=== PATIENT | female | born 1950 | race American Indian/Alaskan Native ===

== ENCOUNTER 2017-01-25 16:41 | Emergency (ER) | payer MEDICARE ==
[2017-01-25 17:35] LABS: Bilirubin,Urine NEG (Negative); Blood,Urine SM (Negative); Ketones,Urine NEG (Negative); Leukocyte Esterase,Urine MOD (Negative); Mucus,Urine 1+ /HPF; Nitrite,Urine NEG (Negative); Protein,Urine <15 mg/dL mg/dL (Negative); Urobilinogen,Urine < 2.0 mg/dL (<2.0)
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
[2017-01-25] MEDS ORDERED: MORPHINE IV ONE (20:56)
[2017-01-25] MEDS ORDERED: NACL 0.9% 1000 ML 1,000 ML IV ONE (20:56)
[2017-01-25 21:26] LABS: Hematocrit 38.9 % (30.3-42.9); Hemoglobin 12.6 gm/dl (10.1-14.3); Mean Corpuscular HGB Conc 32 % (30-34); Mean Corpuscular Hemoglobin 29 pg (28-32); Mean Corpuscular Volume 89 fl (79-97); Platelet Count 158 K/mm3 (140-440); Red Blood Count 4.39 M/mm3 (3.65-5.03); Red Cell Distribution Width 13.5 % (13.2-15.2); White Blood Count 9.7 K/mm3 (4.5-11.0)
[2017-01-25] MEDS ORDERED: NACL ONE (21:28)
[2017-01-25 21:35] LABS: INR 0.96 (0.87-1.13)
[2017-01-25 21:36] LABS: Partial Thromboplastin Time 29.5 Sec. (24.2-36.6)
[2017-01-25 21:42] LABS: BUN/Creatinine Ratio 13.33; Calcium 9.5 mg/dL (8.4-10.2); Chloride 105.6 mmol/L (98-107); Potassium 4.5 mmol/L (3.6-5.0)
[2017-01-25 21:45] LABS: Alanine Aminotransferase 24 units/L (7-56); Albumin 3.9 g/dL (3.9-5); Albumin/Globulin Ratio 1.3 %; Alkaline Phosphatase 65 units/L (35-129)
[2017-01-25 22:14] LABS: Bilirubin,Direct < 0.2 mg/dL (0-0.2)
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
[2017-01-25 22:24] LABS: Basophils % (Manual) 0 % (0.0-1.8); Blastocytes % (Manual) 0 %
[2017-01-25 22:25] LABS: Anisocytosis 1+; Poikilocytosis Few
[2017-01-25 22:26] LABS: Diff Status Complete; Large Platelets Few
[2017-01-25 23:43] VITALS: BP 162/70
== END 2017-01-25 23:43 | disposition home or self-care (01) ==
LOC: ED 16:41
DX: M54.5 Low back pain (principal); I10 Essential (primary) hypertension; E11.9 Type 2 diabetes mellitus without complications; K21.9 Gastro-esophageal reflux disease without esophagitis; M19.90 Unspecified osteoarthritis, unspecified site; J45.909 Unspecified asthma, uncomplicated; Z88.0 Allergy status to penicillin; Z91.013 Allergy to seafood
CPT/HCPCS: 36415; 74177; 80048; 80074; 81001; 85007; 85025; 85610; 85730; 96361; 96374; 99284; J2270; J7030; Q9967

== ENCOUNTER 2017-04-05 16:54 | Emergency (ER) | payer MEDICARE ==
[2017-04-05 18:25] LABS: Basophils % (Auto) 0.5 % (0.0-1.8); Eosinophils % (Auto) 1.2 % (0.0-4.3); Hematocrit 40.9 % (30.3-42.9); Hemoglobin 13.1 gm/dl (10.1-14.3); Mean Corpuscular HGB Conc 32 % (30-34); Mean Corpuscular Hemoglobin 29 pg (28-32); Mean Corpuscular Volume 90 fl (79-97); Platelet Count 168 K/mm3 (140-440); Red Blood Count 4.56 M/mm3 (3.65-5.03); Red Cell Distribution Width 13.4 % (13.2-15.2); White Blood Count 7.2 K/mm3 (4.5-11.0)
[2017-04-05 18:35] LABS: INR 1.16 (0.87-1.13); Partial Thromboplastin Time 28.6 Sec. (24.2-36.6)
[2017-04-05 18:51] LABS: Anion Gap 20 mmol/L; BUN/Creatinine Ratio 8.33; Blood Urea Nitrogen 15 mg/dL (7-17); Calcium 9.3 mg/dL (8.4-10.2); Carbon Dioxide 24 mmol/L (22-30); Chloride 104.1 mmol/L (98-107); Glucose 143 mg/dL (65-100); Potassium 4.4 mmol/L (3.6-5.0); Sodium 144 mmol/L (137-145)
--- NOTE | 2017-04-05 18:52 | Cat Scan Report ---
FINAL REPORT PROCEDURE: CT HEAD/BRAIN WO CON TECHNIQUE: Computerized tomography of the head was performed without contrast material. HISTORY: neuro deficits \T\lt; 6hrs or sx present upon awakening COMPARISON: No prior studies are available for comparison. FINDINGS: Brain: There is no evidence of intracranial hemorrhage. No parenchymal hemorrhage is seen. No mass lesions or mass effect is identified. No abnormal extra-axial fluid collections or masses are seen. There is nonspecific mild mineralization of the basal ganglia bilaterally. There is some decreased density seen in the periventricular white matter without mass effect. This is fairly symmetric and does not exhibit any mass effect consistent with gliosis probably on the basis of microvascular disease or white matter changes of aging. Ventricles: The ventricles, sulcal pattern and fissures are prominent consistent with atrophy. Bones: No evidence of acute fracture. Paranasal sinuses: clear Mastoid air cells: clear IMPRESSION: There is evidence of mild atrophy and gliosis. No acute intracranial abnormalities are identified. If symptoms persist or worsen consider follow-up CT scan or MRI for further evaluation.
[2017-04-05] MEDS ORDERED: NACL 0.9% 1000 ML 1,000 ML IV ONE (20:46)
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
[2017-04-05 21:55] VITALS: BP 142/83
== END 2017-04-05 22:05 | disposition home or self-care (01) ==
LOC: ED 16:54
DX: R42 Dizziness and giddiness (principal); I10 Essential (primary) hypertension; E11.9 Type 2 diabetes mellitus without complications; K21.9 Gastro-esophageal reflux disease without esophagitis; M19.90 Unspecified osteoarthritis, unspecified site; J45.909 Unspecified asthma, uncomplicated; Z88.0 Allergy status to penicillin; Z91.013 Allergy to seafood
CPT/HCPCS: 36415; 70450; 80048; 82962; 84484; 85025; 85610; 85670; 85730; 93005; 93010; 96360; 99284; J7030

== ENCOUNTER 2018-01-20 12:36 | Emergency (ER) | payer MEDICARE ==
[2018-01-20 13:07] LABS: Basophils % (Auto) 0.6 % (0.0-1.8); Eosinophils # (Auto) 0.2 K/mm3 (0.0-0.4); Eosinophils % (Auto) 2.2 % (0.0-4.3); Hematocrit 40.7 % (30.3-42.9); Hemoglobin 13.2 gm/dl (10.1-14.3); Lymphocytes # (Auto) 3.3 K/mm3 (1.2-5.4); Lymphocytes % (Auto) 48.7 % (13.4-35.0); Mean Corpuscular HGB Conc 33 % (30-34); Mean Corpuscular Hemoglobin 29 pg (28-32); Mean Corpuscular Volume 89 fl (79-97); Monocytes # (Auto) 0.4 K/mm3 (0.0-0.8); Monocytes % (Auto) 5.5 % (0.0-7.3); Platelet Count 157 K/mm3 (140-440); Red Blood Count 4.57 M/mm3 (3.65-5.03); Red Cell Distribution Width 13.1 % (13.2-15.2)
[2018-01-20] MEDS ORDERED: DILAUDID IV ONE (13:11)
[2018-01-20] MEDS ORDERED: ZOFRAN IV ONE (13:11)
[2018-01-20 13:23] LABS: BUN/Creatinine Ratio 10; Blood Urea Nitrogen 12 mg/dL (7-17); Calcium 9.3 mg/dL (8.4-10.2); Hemolysis Index 13
--- NOTE | 2018-01-20 17:41 | Cat Scan Report ---
FINAL REPORT EXAM: CT ANGIO CHEST HISTORY: pleuri cp non-comp with blood thin TECHNIQUE: CT chest CT angiogram with reconstructions PRIORS: None. FINDINGS: There is no evidence of filling defect within the central pulmonary vasculature to suggest the presence of acute pulmonary embolus. No evidence of mediastinal pathologic lymph node enlargement Pulmonary trunk is enlarged measuring and 4.0 centimeters which could reflect underlying pulmonary hypertension. The aorta is normal in caliber. No focal pulmonary infiltrate identified. No pleural fluid collection seen. No acute pulmonary abnormality noted. Visualized portion of the upper abdomen demonstrates no acute change. IMPRESSION: Enlargement of the main pulmonary artery which may reflect underlying pulmonary hypertension. No CT evidence of acute pulmonary embolus
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
[2018-01-20 20:17] VITALS: BP 101/68
== END 2018-01-20 19:50 | disposition home or self-care (01) ==
LOC: ED 12:36
DX: R07.89 Other chest pain (principal); R06.02 Shortness of breath; I10 Essential (primary) hypertension; E11.9 Type 2 diabetes mellitus without complications; K21.9 Gastro-esophageal reflux disease without esophagitis; M19.90 Unspecified osteoarthritis, unspecified site; Z79.82 Long term (current) use of aspirin; Z88.4 Allergy status to anesthetic agent; Z91.040 Latex allergy status; Z88.0 Allergy status to penicillin; Z91.013 Allergy to seafood; Z91.048 Other nonmedicinal substance allergy status
CPT/HCPCS: 36415; 71275; 80048; 84484; 85025; 93005; 93010; 96374; 96375; 99284; J1170; J2405; Q9967

== ENCOUNTER 2018-01-27 21:17 | Observation (INO) | payer MEDICARE ==
[2018-01-27] MEDS ORDERED: ASPIRIN PO ONE (23:02)
[2018-01-27 23:33] LABS: Basophils % (Auto) 0.4 % (0.0-1.8); Eosinophils # (Auto) 0.2 K/mm3 (0.0-0.4); Hematocrit 39.4 % (30.3-42.9); Hemoglobin 12.7 gm/dl (10.1-14.3); Lymphocytes # (Auto) 4.5 K/mm3 (1.2-5.4); Lymphocytes % (Auto) 47.3 % (13.4-35.0); Mean Corpuscular HGB Conc 32 % (30-34); Mean Corpuscular Hemoglobin 29 pg (28-32); Mean Corpuscular Volume 90 fl (79-97); Monocytes # (Auto) 0.4 K/mm3 (0.0-0.8); Monocytes % (Auto) 4.7 % (0.0-7.3); Platelet Count 157 K/mm3 (140-440); Red Blood Count 4.39 M/mm3 (3.65-5.03); Red Cell Distribution Width 13.4 % (13.2-15.2)
[2018-01-27 23:51] LABS: BUN/Creatinine Ratio 15; Blood Urea Nitrogen 22 mg/dL (7-17); Hemolysis Index 5
--- NOTE | 2018-01-28 01:46 | Emergency Department Report ---
ED Chest Pain HPI - General Chief Complaint: Chest Pain Stated Complaint: CP Time Seen by Provider: 01/28/18 01:38 Source: patient Mode of arrival: Ambulatory Limitations: No Limitations - History of Present Illness Initial Comments: Patient is 67 years old female with history of coronary artery disease status post stents at [facility] last year, diabetes and hypertension. Patient presented with chest pain, substernal, pressure with no radiation. Patient denied any shortness of breath. No cough or fever. MD Complaint: chest pain Onset: during rest Pain Location: left chest Quality: pressure - Related Data Home Medications Medication Instructions Recorded Confirmed Last Taken Albuterol Sulfate [Ventolin HFA] 1 puff IH BID 07/17/17 01/20/18 07/16/17 Apixaban [Eliquis] 5 mg PO BID 07/17/17 01/20/18 07/17/17 Aspirin [Adult Low Dose Aspirin EC] 81 mg PO DAILY 07/17/17 01/20/18 07/17/17 Bimatoprost [Lumigan 0.01%] 1 drop OP HS 07/17/17 01/20/18 07/15/17 Fluticasone Propionate [Flovent 1 puff IH DAILY 07/17/17 01/20/18 07/16/17 110 MCG/PUFF HFA] Fluticasone [Flonase] 2 spray NS BID 07/17/17 01/20/18 07/17/17 Furosemide [Lasix] 20 mg PO PRN 07/17/17 01/20/18 Unknown Omeprazole 40 mg PO QAM 07/17/17 01/20/18 07/17/17 Rosuvastatin Calcium [Crestor] 10 mg PO HS 07/17/17 01/20/18 07/15/17 Solifenacin Succinate [Vesicare] 10 mg PO DAILY 07/17/17 01/20/18 07/17/17 Trazodone HCl 150 mg PO DAILY 07/17/17 01/20/18 07/15/17 Venlafaxine HCl [Effexor Xr] 150 mg PO DAILY 07/17/17 01/20/18 07/17/17 risperiDONE [RisperDAL] 3 mg PO QPM 07/17/17 01/20/18 07/15/17 Previous Rx's Medication Instructions Recorded Last Taken Type HYDROcodone/APAP 5-325 [[place] 1 each PO Q4HR PRN #12 tablet 01/20/18 Unknown Rx 5/325] Allergies Allergy/AdvReac Type Severity Reaction Status Date / Time Latex, Natural Rubber Allergy Rash Verified 08/04/17 13:33 lidocaine [From Xylocaine] Allergy Swelling Verified 08/04/17 13:33 Penicillins Allergy Swelling Verified 08/04/17 13:33 SEAFOOD Allergy Intermediate Rash Uncoded 07/17/17 11:27 Heart Score - HEART Score History: Moderately suspicious EKG: Non-specific Age: > 65 Risk factors: > 3 risk factors or hx of atherosclerotic disease Troponin: < normal limit HEART Score: 6 - Critical Actions Critical Actions: 4-6 pts:12-16.6% risk of adverse cardiac event. Should be admitted ED Review of Systems ROS: Stated complaint: CP Other details as noted in HPI Comment: All other systems reviewed and negative Respiratory: denies: cough, shortness of breath Cardiovascular: chest pain. denies: palpitations Gastrointestinal: denies: abdominal pain, nausea Musculoskeletal: denies: back pain Neurological: denies: headache, weakness ED Past Medical Hx - Past Medical History Hx Hypertension: Yes Hx Congestive Heart Failure: No Hx Diabetes: Yes Hx GERD: Yes Hx Arthritis: Yes Hx Seizures: Yes Hx Asthma: Yes Hx COPD: No Additional medical history: Pulmonary Embolism May 2017. HYPOTENSION. RUPTURED DISC IN BACK. OVERACTIVE BLADDER - Surgical History Hx Coronary Stent: Yes (2015) Additional Surgical History: BONE SPURS BOTH FEET. "INTERNAL MONITOR" - Social History Smoking Status: Former Smoker Substance Use Type: None - Medications Home Medications: Home Medications Medication Instructions Recorded Confirmed Last Taken Type Albuterol Sulfate [Ventolin HFA] 1 puff IH BID 07/17/17 01/20/18 07/16/17 History Apixaban [Eliquis] 5 mg PO BID 07/17/17 01/20/18 07/17/17 History Aspirin [Adult Low Dose Aspirin EC] 81 mg PO DAILY 07/17/17 01/20/18 07/17/17 History Bimatoprost [Lumigan 0.01%] 1 drop OP HS 07/17/17 01/20/18 07/15/17 History Fluticasone Propionate [Flovent 1 puff IH DAILY 07/17/17 01/20/18 07/16/17 History 110 MCG/PUFF HFA] Fluticasone [Flonase] 2 spray NS BID 07/17/17 01/20/18 07/17/17 History Furosemide [Lasix] 20 mg PO PRN 07/17/17 01/20/18 Unknown History Omeprazole 40 mg PO QAM 07/17/17 01/20/18 07/17/17 History Rosuvastatin Calcium [Crestor] 10 mg PO HS 07/17/17 01/20/18 07/15/17 History Solifenacin Succinate [Vesicare] 10 mg PO DAILY 07/17/17 01/20/18 07/17/17 History Trazodone HCl 150 mg PO DAILY 07/17/17 01/20/18 07/15/17 History Venlafaxine HCl [Effexor Xr] 150 mg PO DAILY 07/17/17 01/20/18 07/17/17 History risperiDONE [RisperDAL] 3 mg PO QPM 07/17/17 01/20/18 07/15/17 History HYDROcodone/APAP 5-325 [[place] 1 each PO Q4HR PRN #12 tablet 01/20/18 Unknown Rx 5/325] ED Physical Exam - General Limitations: No Limitations General appearance: alert, in no apparent distress - Head Head exam: Present: atraumatic, normocephalic, normal inspection - Eye Eye exam: Present: normal appearance, PERRL - ENT ENT exam: Present: normal exam, normal orophraynx, mucous membranes moist - Neck Neck exam: Present: normal inspection, full ROM. Absent: tenderness, meningismus, lymphadenopathy, thyromegaly - Respiratory Respiratory exam: Present: normal lung sounds bilaterally. Absent: respiratory distress, wheezes, rales, rhonchi, stridor, chest wall tenderness, accessory muscle use, decreased breath sounds, prolonged expiratory - Cardiovascular Cardiovascular Exam: Present: regular rate, normal rhythm, normal heart sounds - GI/Abdominal GI/Abdominal exam: Present: soft, normal bowel sounds. Absent: distended, tenderness, guarding, rebound, rigid, organomegaly, mass, bruit, pulsatile mass - Extremities Exam Extremities exam: Present: normal inspection, full ROM, normal capillary refill - Back Exam Back exam: Present: normal inspection, full ROM. Absent: tenderness, CVA tenderness (R), CVA tenderness (L) - Neurological Exam Neurological exam: Present: alert, oriented X3, CN II-XII intact, normal gait - Skin Skin exam: Present: warm, intact, normal color ED Course Vital Signs 01/27/18 01/28/18 01/28/18 22:56 01:22 01:32 Temperature 98.7 F 97.6 F Pulse Rate 85 73 Respiratory 18 23 Rate Blood Pressure 105/57 O2 Sat by Pulse 96 Oximetry JESSICA score - Jessica Score Age > 65: (1) Yes Aspirin use within the Past 7 Days: (1) Yes 3 or more CAD Risk Factors: (0) No 2 or more Angina events in past 24 hrs: (0) No Known CAD with more than 50% Stenosis: (0) No Elevated Cardiac Markers: (0) No ST Deviation Greater than 0.5mm: (0) No JESSICA Score: 2 ED Medical Decision Making - Lab Data Result diagrams: 01/27/18 23:14 01/27/18 23:14 - EKG Data -: EKG Interpreted by Me EKG shows normal: sinus rhythm Rate: normal - EKG Data Interpretation: no acute changes - Radiology Data Radiology results: report reviewed Chest x-ray unremarkable. - Medical Decision Making I discussed the patient is Dr. Ponce, he agreed to admit the patient to his service. Critical care attestation.: If time is entered above; I have spent that time in minutes in the direct care of this critically ill patient, excluding procedure time. ED Disposition Clinical Impression: Chest pain Disposition: OP ADMIT IP TO THIS HOSP Is pt being admited?: Yes Condition: Stable Instructions: Chest Pain (ED) Referrals: PRIMARY CARE, [Primary Care Provider] - 3-5 Days
--- NOTE | 2018-01-28 02:13 | XRay Report ---
FINAL REPORT EXAM: XR CHEST 1V AP HISTORY: chest pain TECHNIQUE: A portable upright view the chest was obtained. FINDINGS: The heart is mildly enlarged. The lungs are not congested. There are no localized infiltrates or effusions. There EKG leads overlying the chest wall. The skeletal structures otherwise appear well maintained. IMPRESSION: Cardiomegaly. No acute process in the chest.
[2018-01-28] MEDS ORDERED: HEPARIN SUB-Q SCH (04:00)
[2018-01-28] MEDS ORDERED: MORPHINE IV PRN (04:04)
[2018-01-28] MEDS ORDERED: ZOFRAN IV PRN (04:04)
[2018-01-28] MEDS ORDERED: NITROSTAT SL PRN (04:06)
[2018-01-28] MEDS ORDERED: NORCO 5/325 PO PRN (04:20)
[2018-01-28] MEDS ORDERED: BABY ASPIRIN PO ONE (04:23)
[2018-01-28] MEDS ORDERED: NACL 0.9% 1000 ML 1,000 ML IV SCH (05:00)
[2018-01-28] MEDS: NITRO-BID 2% TP SCH ×4 (06:02→19:42)
[2018-01-28] MEDS ORDERED: HEPARIN ONE (06:04)
[2018-01-28] MEDS ORDERED: NITRO-BID 2% TP ONE (06:05)
[2018-01-28] MEDS ORDERED: BABY ASPIRIN ONE (06:05)
--- NOTE | 2018-01-28 07:48 | History and Physical Report ---
CHIEF COMPLAINT: Chest pain. HISTORY OF PRESENT ILLNESS: The patient is a 67-year-old female. She has been having pressure-like chest pain going on all the last week on and off. Pain does not radiate and the pain was associated with shortness of breath and nausea, but no vomiting, and also there is history of diaphoresis. The patient states she was in [facility] on Thursday where they checked her for blood clot and did not find any blood clot and send her home. The patient presented to this Emergency Room with chest pain. There is no history of fever or chills. No history of cough. PAST MEDICAL HISTORY: Pertinent for coronary artery disease, status post stent placement at [facility] last year, also the patient has past medical history of hypertension, diabetes mellitus, gastroesophageal reflux disease, arthritis, seizure disorder, asthma, and pulmonary embolism. Also, the patient has past medical history of ruptured disc in the back, overactive bladder, and hypotension. PAST SURGICAL HISTORY: Pertinent for coronary artery stent placement in 2016, and 2017, also the patient has past surgical history of small surgery in both feet. FAMILY HISTORY: Noncontributory. SOCIAL HISTORY: The patient is a former cigarette smoker, does not smoke anymore, and does not drink alcohol or use illicit drugs. MEDICATIONS: The patient is on Ventolin inhaler one puff twice daily, Eliquis (apixaban) 5 mg by mouth twice daily, aspirin 81 mg by mouth daily, Lumigan eye drops 0.01% one drop to the affected eye every night. The patient is also on Flovent inhaler one puff daily and on fluticasone or Flonase spray, two sprays to the nose twice daily. The patient is also on Lasix 20 mg by mouth daily as needed for swelling. The patient is on omeprazole 40 mg by mouth daily, Crestor 10 mg by mouth at bedtime, solifenacin succinate 10 mg by mouth daily. The patient is on trazodone 150 mg by mouth daily, venlafaxine 150 mg by mouth daily, risperidone 3 mg by mouth every night, and Elton 5/325 one by mouth every 4 hours as needed for pain. ALLERGIES: The patient is allergic to LATEX, NATURAL RUBBER, LIDOCAINE, PENICILLIN, and SEAFOOD. REVIEW OF SYSTEMS: CONSTITUTIONAL: There is no fever, no chills. Diaphoresis is present. HEENT: There is no headache or sore throat. CARDIOVASCULAR SYSTEM: Chest pain is present. No orthopnea. RESPIRATORY SYSTEM: There is shortness of breath, no cough. GASTROINTESTINAL SYSTEM: There is nausea with no vomiting, no abdominal pain, diarrhea or constipation. NEUROLOGICAL SYSTEM: There is no numbness, no dizziness, no altered mental status. MUSCULOSKELETAL SYSTEM: There is no joint pain or swelling. DERMATOLOGICAL SYSTEM: There is no skin rash. GENITOURINARY SYSTEM: There is no dysuria, hematuria, or flank pain. Rest of system review is normal. PHYSICAL EXAMINATION: GENERAL: At the time of exam, the patient was found to be alert, oriented x 3, not in acute distress. VITAL SIGNS: Shows temperature of 97.8 degrees Fahrenheit, pulse of 85, respirations 18, blood pressure 105/57, and O2 sat of 96% on room air. HEENT: Pupils to be equal, round, and reactive to light and accommodation. Extraocular muscles are intact. NECK: Supple with no JVD or carotid bruits. CARDIOVASCULAR SYSTEM: Showed normal first and second heart sounds, with no gallops or murmurs. RESPIRATORY SYSTEM: Show good air entry on both sides of the lung with no abnormal breath sounds. GASTROINTESTINAL SYSTEM: Show abdomen to be full, soft, and nontender with no organomegaly or rigidity. NEUROLOGICAL: Exam shows no focal deficit. MUSCULOSKELETAL SYSTEM: Show no joint swelling or tenderness. DERMATOLOGIC SYSTEM: Show no skin rash. GENITOURINARY SYSTEM: Showing no costovertebral angle tenderness. PERTINENT LABORATORY: The patient has CBC done with normal white count, normal hemoglobin, and normal hematocrit. CBC differential showing elevated lymphocyte count of 47.3% and normal segmented neutrophils. The patient's chemistry shows normal electrolytes, with elevated BUN of 22, and elevated creatinine of 1.5. Rest of the patient's chemistry was unremarkable. Cardiac enzymes show normal value. IMAGING STUDIES: The patient had chest x-ray done that came back no active cardiopulmonary lesions. DIAGNOSES: 1. Chest pain. 2. Acute kidney injury. PLAN: The patient will be admitted to medical floor on telemetry. We will have cardiac enzyme involving troponin, total CK, and CK-MB checked every six hours x 2 more levels. The patient will be nothing by mouth for Lexiscan stress test in the morning. The patient will be on intravenous normal saline at 100 mL an hour. The patient will have basic metabolic panel checked in the morning to reevaluate the acute renal failure after rehydration and the patient will be on aspirin 325 mg by mouth daily and will be on nitro paste half inch to anterior chest wall every 6 hours. The patient will also be on sublingual nitroglycerin 0.4 mg every 5 minutes as needed for breakthrough chest pain. The patient will be on intravenous morphine 2 mg every 3 hours as needed for pain and intravenous Zofran 4 mg every 6 hours for nausea and vomiting. The patient will be on Tylenol 650 mg every 4 hours for fever and headache, and further management of the patient's condition will be dependent on the result of the stress test in the morning. The patient's home medications will be reconciled and started accordingly. JOB# [id number] OCN/JASPAL
[2018-01-28 08:33] LABS: BUN/Creatinine Ratio 19; Blood Urea Nitrogen 19 mg/dL (7-17); Calcium 8.7 mg/dL (8.4-10.2); Hemolysis Index 9
[2018-01-28 08:34] LABS: Creatine Kinase MB 2.1 ng/mL (0.0-4.0)
[2018-01-28] MEDS: PULMICORT IH SCH ×2 (08:45→21:35)
[2018-01-28] MEDS: PROVENTIL IH SCH ×2 (08:46→21:35)
[2018-01-28] MEDS ORDERED: LEXISCAN IV ONE ×2 (09:52→10:01)
[2018-01-28] MEDS ORDERED: FLUTICASONE PROPIONATE IH SCH (10:00)
[2018-01-28] MEDS ORDERED: PROAIR IH SCH (10:00)
[2018-01-28] MEDS ORDERED: ASPIRIN PO SCH (10:00)
[2018-01-28] MEDS: ELIQUIS PO SCH ×2 (12:50→21:50)
[2018-01-28] MEDS: HALFPRIN EC PO SCH (12:50)
[2018-01-28] MEDS: FLONASE NS SCH ×2 (13:35→21:49)
[2018-01-28 14:09] LABS: Creatine Kinase MB 2.1 ng/mL (0.0-4.0)
--- NOTE | 2018-01-28 15:39 | Consultation ---
History of Present Illness Consult date: 01/28/18 Requesting physician: WILL FISHER Consult reason: chest pain, other (cad) History of present illness: The pt is a 67 YO female with a past medical history significant for CAD s/p PCI in 05/2017 at [place], PE diagnosed 6 months ago at [place], anticoagulated with Eliquis, HTN, DM, severe pulmonary HTN, mod to severe TR. She is previously unknown to our practice. She reports she is regularly followed by [place] cardiology. She presented with complaints of chest pain for 2 weeks prior to arrival. She describes her chest pain as a right-sided, intermittent, nonexertional, nonradiating pain which sometimes radiates down her right arm. She denies any SOB, palpitations, n/v, diaphoresis, dizziness or syncope. She underwent lexiscan MPI stress testing this AM which was negative for significant ischemia. Of note, she reports that she underwent cardiac catheterization this past 01/25/2018, via right radial approach. She believes the result of this test was normal. Echo done 07/2017 showed EF 60-65%, impaired relaxation, RV wall thickness mod increased, RV mod dilated, RV systolic function mildly reduced, RA mildly dilated, mod to severe TR, severe pulm HTN with RVSP 107mmHg. Lexiscan MPI stress test done 07/2017 was negative for ischemia, suggestive of RV pressure overload. Past History Past Medical History: CAD, hypertension, pulmonary embolism, other (severe pulm HTN) Social history: denies: smoking, alcohol abuse, prescription drug abuse Medications and Allergies Allergies Allergy/AdvReac Type Severity Reaction Status Date / Time Latex, Natural Rubber Allergy Rash Verified 08/04/17 13:33 lidocaine [From Xylocaine] Allergy Swelling Verified 08/04/17 13:33 Penicillins Allergy Swelling Verified 08/04/17 13:33 SEAFOOD Allergy Intermediate Rash Uncoded 07/17/17 11:27 Home Medications Medication Instructions Recorded Confirmed Last Taken Type Albuterol Sulfate [Ventolin HFA] 1 puff IH BID 07/17/17 01/28/18 2 Days Ago History ~01/26/18 Apixaban [Eliquis] 5 mg PO BID 07/17/17 01/28/18 2 Days Ago History ~01/26/18 Aspirin [Adult Low Dose Aspirin EC] 81 mg PO DAILY 07/17/17 01/28/18 2 Days Ago History ~01/26/18 Bimatoprost [Lumigan 0.01%] 1 drop OP HS 07/17/17 01/28/18 2 Days Ago History ~01/26/18 Fluticasone Propionate [Flovent 1 puff IH DAILY 07/17/17 01/28/18 2 Days Ago History 110 MCG/PUFF HFA] ~01/26/18 Fluticasone [Flonase] 2 spray NS BID 07/17/17 01/28/18 2 Days Ago History ~01/26/18 Furosemide [Lasix] 20 mg PO PRN 07/17/17 01/28/18 2 Days Ago History ~01/26/18 Omeprazole 40 mg PO QAM 07/17/17 01/28/18 2 Days Ago History ~01/26/18 Rosuvastatin Calcium [Crestor] 10 mg PO HS 07/17/17 01/28/18 2 Days Ago History ~01/26/18 Solifenacin Succinate [Vesicare] 10 mg PO DAILY 07/17/17 01/28/18 2 Days Ago History ~01/26/18 Trazodone HCl 150 mg PO DAILY 07/17/17 01/28/18 2 Days Ago History ~01/26/18 Venlafaxine HCl [Effexor Xr] 150 mg PO DAILY 07/17/17 01/28/18 2 Days Ago History ~01/26/18 risperiDONE [RisperDAL] 3 mg PO QPM 07/17/17 01/28/18 2 Days Ago History ~01/26/18 Docusate Sodium 100 mg PO BID MDD stool softener 01/28/18 01/28/18 Unknown History Active Meds: Active Medications Acetaminophen (Tylenol) 650 mg PO Q4H PRN PRN Reason: For Pain/Fever/Headache Acetaminophen/Hydrocodone Bitart ([place] 5/325) 1 each PO Q4H PRN PRN Reason: Pain, Moderate (4-6) Last Admin: 01/28/18 12:50 Dose: 1 each Albuterol (Proventil) 2.5 mg IH BIDRT [facility] Last Admin: 01/28/18 08:46 Dose: 2.5 mg Apixaban (Eliquis) 5 mg PO BID [facility]; Protocol Last Admin: 01/28/18 12:50 Dose: 5 mg Aspirin (Halfprin Ec) 81 mg PO DAILY [facility] Last Admin: 01/28/18 12:50 Dose: 81 mg Budesonide (Pulmicort) 0.5 mg IH Q12HRT [facility] Last Admin: 01/28/18 08:45 Dose: 0.5 mg Fluticasone Propionate (Flonase) 100 mcg NS BID [facility] Last Admin: 01/28/18 13:35 Dose: 100 mcg Sodium Chloride (Nacl 0.9% 1000 Ml) 1,000 mls @ 100 mls/hr IV DIRECT [facility] Latanoprost (Latanoprost 0.005%) 1 drops OU HS [facility] Morphine Sulfate (Morphine) 2 mg IV Q3H PRN PRN Reason: Pain, Moderate (4-6) Nitroglycerin (Nitrostat) 0.4 mg SL .Q5MIN PRN PRN Reason: Chest Pain Nitroglycerin (Nitro-Bid 2%) 0.5 inch TP QIDNTG [facility]; Protocol Last Admin: 01/28/18 12:51 Dose: 0.5 inch Ondansetron HCl (Zofran) 4 mg IV Q8H PRN PRN Reason: Nausea And Vomiting Review of Systems All systems: negative Cardiovascular: chest pain, high blood pressure, no orthopnea, no palpitations, no rapid/irregular heart beat, no edema, no syncope, no lightheadedness, no shortness of breath, no dyspnea on exertion, no leg edema, no decreased exercise tolerance Respiratory: no cough, no shortness of breath, no dyspnea on exertion, no congestion, no wheezing, no pain on inspiration Physical Examination Vital Signs Temp Pulse Resp BP Pulse Ox 98.7 F 85 18 105/57 96 01/27/18 22:56 01/27/18 22:56 01/27/18 22:56 01/27/18 22:56 01/27/18 22:56 General appearance: no acute distress HEENT: Positive: PERRL, Normocephaly, Mucus Membranes Moist Neck: Positive: neck supple, trachea midline Cardiac: Positive: Reg Rate and Rhythm, S1/S2, Systolic Murmur Lungs: Positive: clear to auscultation Neuro: Positive: Grossly Intact, Cranial Nerve 2-12 Intact Abdomen: Positive: Soft. Negative: Tender Skin: Positive: Clear. Negative: Rash, Wound Musculoskeletal: No Fluid Collection, No Pain, Normal Range of Motion Extremities: Absent: edema Results 01/27/18 23:14 01/28/18 07:56 Cardiac Enzymes 01/28/18 01/28/18 Range/Units 07:56 13:24 CK-MB (CK-2) 2.1 2.1 (0.0-4.0) ng/mL CBC 01/27/18 Range/Units 23:14 WBC 9.4 (4.5-11.0) K/mm3 RBC 4.39 (3.65-5.03) M/mm3 Hgb 12.7 (10.1-14.3) gm/dl Hct 39.4 (30.3-42.9) % Plt Count 157 (140-440) K/mm3 Lymph # 4.5 (1.2-5.4) K/mm3 Dickens # 0.4 (0.0-0.8) K/mm3 Eos # 0.2 (0.0-0.4) K/mm3 Baso # 0.0 (0.0-0.1) K/mm3 Comprehensive Metabolic Panel 01/27/18 01/28/18 Range/Units 23:14 07:56 Sodium 141 145 (137-145) mmol/L Potassium 3.9 3.6 (3.6-5.0) mmol/L Chloride 102.4 106.3 (98-107) mmol/L Carbon Dioxide 28 26 (22-30) mmol/L BUN 22 H 19 H (7-17) mg/dL Creatinine 1.5 H 1.0 (0.7-1.2) mg/dL Glucose 103 H 80 (65-100) mg/dL Calcium 9.0 8.7 (8.4-10.2) mg/dL - Imaging and Cardiology Echo: pending, report reviewed (07/2017 showed EF 60-65%, impaired relaxation, RV wall thickness mod increased, RV mod dilated, RV systolic function mildly reduced, RA mildly dilated, mod to severe TR, severe pulm HTN with RVSP 107mmHg. ) EKG: report reviewed, image reviewed EKG interpretations - Telemetry EKG Rhythm: Sinus Rhythm - EKG Sinus rhythms and dysrhythmias: sinus rhythm Repolarization changes or abnormalities: ST or T wave suggestive of ischemia Assessment and Plan Assessment: Chest pain, atypical Abnormal ECG - Jose R negative for AMI CAD s/p PCI in 05/2017 at [place] H/o PE diagnosed 6 months ago at [place], anticoagulated with Eliquis HTN DM Severe pulmonary HTN Mod to severe TR Plan: S/p lexiscan MPI this AM which was negative for ischemia. Request medical records from [facility] - pt reports she underwent LHC on Thursday which was normal to her knowledge. The patient has been seen in conjunction with Dr. Silverman who agrees with the assessment and plan of care.
--- NOTE | 2018-01-28 16:06 | Progress Note ---
Hospitalist Physical - Constitutional Vitals: Temp Pulse Resp BP Pulse Ox 97.6 F 76 18 130/55 99 01/28/18 01:32 01/28/18 12:51 01/28/18 08:55 01/28/18 10:21 01/28/18 06:55 General appearance: Present: no acute distress Results - Labs CBC & Chem 7: 01/27/18 23:14 01/28/18 07:56 Labs: Laboratory Last Values WBC 9.4 K/mm3 (4.5-11.0) 01/27/18 23:14 RBC 4.39 M/mm3 (3.65-5.03) 01/27/18 23:14 Hgb 12.7 gm/dl (10.1-14.3) 01/27/18 23:14 Hct 39.4 % (30.3-42.9) 01/27/18 23:14 MCV 90 fl (79-97) 01/27/18 23:14 MCH 29 pg (28-32) 01/27/18 23:14 MCHC 32 % (30-34) 01/27/18 23:14 RDW 13.4 % (13.2-15.2) 01/27/18 23:14 Plt Count 157 K/mm3 (140-440) 01/27/18 23:14 Lymph % (Auto) 47.3 % (13.4-35.0) H 01/27/18 23:14 Taney % (Auto) 4.7 % (0.0-7.3) 01/27/18 23:14 Eos % (Auto) 2.0 % (0.0-4.3) 01/27/18 23:14 Baso % (Auto) 0.4 % (0.0-1.8) 01/27/18 23:14 Lymph # 4.5 K/mm3 (1.2-5.4) 01/27/18 23:14 Taney # 0.4 K/mm3 (0.0-0.8) 01/27/18 23:14 Eos # 0.2 K/mm3 (0.0-0.4) 01/27/18 23:14 Baso # 0.0 K/mm3 (0.0-0.1) 01/27/18 23:14 Seg Neutrophils % 45.6 % (40.0-70.0) 01/27/18 23:14 Seg Neutrophils # 4.3 K/mm3 (1.8-7.7) 01/27/18 23:14 Sodium 145 mmol/L (137-145) 01/28/18 07:56 Potassium 3.6 mmol/L (3.6-5.0) 01/28/18 07:56 Chloride 106.3 mmol/L (98-107) 01/28/18 07:56 Carbon Dioxide 26 mmol/L (22-30) 01/28/18 07:56 Anion Gap 16 mmol/L 01/28/18 07:56 BUN 19 mg/dL (7-17) H 01/28/18 07:56 Creatinine 1.0 mg/dL (0.7-1.2) 01/28/18 07:56 Estimated GFR > 60 ml/min 01/28/18 07:56 BUN/Creatinine Ratio 19 % 01/28/18 07:56 Glucose 80 mg/dL (65-100) 01/28/18 07:56 Calcium 8.7 mg/dL (8.4-10.2) 01/28/18 07:56 Total Creatine Kinase 82 units/L (30-135) 01/28/18 13:24 CK-MB (CK-2) 2.1 ng/mL (0.0-4.0) 01/28/18 13:24 CK-MB (CK-2) Rel Index 2.5 (0-4) 01/28/18 13:24 Troponin T < 0.010 ng/mL (0.00-0.029) 01/28/18 13:24
--- NOTE | 2018-01-28 16:06 | Event Note ---
Date: 01/28/18 Patient is 67 yo with history of CAD, presents with chest pain. I have seen and examined her. Patient states had cardiac cath at [facility] 3 days ago. Will request records. Cardiology following.
[2018-01-28] MEDS: TYLENOL PO PRN (21:50)
[2018-01-28] MEDS ORDERED: LATANOPROST 0.005% OU SCH (22:00)
--- NOTE | 2018-01-28 23:01 | Treadmill Report ---
NUCLEAR CARDIAC IMAGING INDICATION FOR PROCEDURE: Chest pain. Informed consent was obtained. Vasodilator stress was achieved with 0.4 mg of intravenous Lexiscan per protocol. Rest and stress nuclear cardiac imaging were performed following the intravenous administration of 10 mCi and 28 mCi of technetium-99m Myoview per protocol. Images were acquired in a 180-degree arc from 45 degrees BUENROSTRO to 45 degrees LPO. After data acquisition and reconstruction, the images were processed and reoriented into the vertical long, horizontal long, and horizontal short axis slices. A polar color map of the horizontal short axis slices was generated and reviewed. The rotating planar images reviewed in cinematic format on the computer console. Gated SPECT imaging demonstrates a post-stress left ventricular ejection fraction of 66% with normal wall motion. Myocardial perfusion imaging demonstrates no significant cavity change between stress and rest. No significant stress induced perfusion defects are seen. Nuclear cardiac imaging demonstrates grossly normal post-stress left ventricular systolic function with no significant evidence for myocardial ischemia or necrosis. JOB# [id number] KARLA/JASPAL
[2018-01-29] MEDS: TYLENOL PO PRN ×2 (06:25→14:42)
[2018-01-29] MEDS: NITRO-BID 2% TP SCH ×5 (06:26→17:23)
[2018-01-29] MEDS: PROVENTIL IH SCH (08:10)
[2018-01-29] MEDS: PULMICORT IH SCH (08:10)
[2018-01-29] MEDS: HALFPRIN EC PO SCH (10:24)
[2018-01-29] MEDS: ELIQUIS PO SCH (10:24)
[2018-01-29] MEDS: FLONASE NS SCH (10:25)
--- NOTE | 2018-01-29 11:38 | Progress Note ---
Assessment and Plan Assessment: Chest pain, atypical Abnormal ECG - Jose R negative for AMI CAD s/p PCI in 05/2017 at [facility] H/o PE diagnosed 6 months ago at [facility], anticoagulated with Eliquis HTN DM Severe pulmonary HTN Mod to severe TR Plan: S/p lexiscan MPI yesterday which was negative for ischemia. Await medical records from [facility] - pt reports she underwent LHC on Thursday which was normal to her knowledge. The patient has been seen in conjunction with Dr. Akins who agrees with the assessment and plan of care. Subjective Date of service: 01/29/18 Principal diagnosis: chest pain Interval history: pt resting in bed, still c/o intermittent right-sided chest pain. Objective Last Vital Signs Temp 97.4 F L 01/29/18 07:09 Pulse 69 01/29/18 10:26 Resp 16 01/29/18 10:00 BP 148/78 01/29/18 10:26 Pulse Ox 97 01/29/18 10:00 - Physical Examination HEENT: Positive: PERRL, Normocephaly, Mucus Membranes Moist Neck: Positive: neck supple, trachea midline Cardiac: Positive: Reg Rate and Rhythm, S1/S2 Lungs: Positive: clear to auscultation Neuro: Positive: Grossly Intact, Cranial Nerve 2-12 Intact Abdomen: Positive: Soft. Negative: Tender Skin: Positive: Clear. Negative: Rash, Wound Musculoskeletal: No Fluid Collection, No Pain, Normal Range of Motion Extremities: Absent: edema - Labs and Meds Cardiac Enzymes 01/28/18 Range/Units 13:24 CK-MB (CK-2) 2.1 (0.0-4.0) ng/mL - Imaging and Cardiology EKG: report reviewed, image reviewed Echo: pending, report reviewed (07/2017 showed EF 60-65%, impaired relaxation, RV wall thickness mod increased, RV mod dilated, RV systolic function mildly reduced, RA mildly dilated, mod to severe TR, severe pulm HTN with RVSP 107mmHg. ) - EKG Sinus rhythms and dysrhythmias: sinus rhythm Repolarization changes or abnormalities: ST or T wave suggestive of ischemia
--- NOTE | 2018-01-29 11:57 | Discharge Summary ---
Providers - Providers Date of Admission: 01/28/18 03:57 Attending physician: WILL FISHER 01/28/18 09:41 Consult to Physician [CONS] Routine Comment: Consulting Provider: CANDIS WALDEN Physician Instructions: Reason For Exam: Chest pain, coronary artery disease Primary care physician: DAYNA FLOR MD Hospitalization Condition: Fair Disposition: DC-01 TO HOME OR SELFCARE Core Measure Documentation - Palliative Care Palliative Care/ Comfort Measures: Not Applicable - Core Measures Any of the following diagnoses?: none Exam - Constitutional Vitals: Temp Pulse Resp BP Pulse Ox 97.4 F L 69 16 148/78 97 01/29/18 07:09 01/29/18 10:26 01/29/18 10:00 01/29/18 10:26 01/29/18 10:00 Plan Activity: advance as tolerated Diet: low fat, low cholesterol Additional Instructions: 1.Follow up with PCP in 3-5 days. 2.Follow up with [facility] [employer] in 3-5 days Follow up with: PRIMARY CAREMD [Primary Care Provider] - 3-5 Days
--- NOTE | 2018-01-29 15:14 | Query- Chest Pain ---
Donna Boles____Jose Date:__01/29/2018 Evelyn/SPENSER:___Raina Phone#:___[phone] Exercise your independent professional judgment when responding to query. Questions asked do not imply a particular answer is desired or expected. We greatly appreciate your clarification on this issue. Clinical Documentation States: 67 Year old female was admitted on 01/28/2018 for chest pain. The cardiology ([facility]) progress note states "Chest pain, atypical." Please document the etiology of Chest Pain: [ ] Myocardial Infarction [ ] Pneumonia [ ] Mediastinitis [ ] Costochondritis [ ] Pulmonary Embolism [ ] Coronary Artery Disease [x] GERD [ ] Other: [ ] Comment/Explanation: Present on Admission: [ x] Yes (Y) [ ] Clinically undeterminable (W) [ ] No(N) Please document response in your Progress Notes and/or Discharge Summary and indicate if the condition was present on admission. CAITLYN
--- NOTE | 2018-01-29 15:19 | Query- Renal Failure ---
Donna Rodriguez Date:__01/29/2018 Spring Upholsterer/SPENSER:__Raina Phone#:__[phone] Exercise your independent professional judgment when responding to query. Questions asked do not imply a particular answer is desired or expected. We greatly appreciate your clarification on this issue. Clinical Documentation States: 67 Year old female was admitted on 01/27/2018 for chest pain. Clinical Findings Show: Creatinine (01/27): 1.5 Acute Renal Failure with or due to: [ ] Tubular Necrosis [ ] Medullary Necrosis [x] Vasomotor Nephropathy [ ] Shock Kidney [ ] Tubular Nephrosis [ ] Renal Tubular Stasis [ ] Cortical Necrosis [ ] Acute Renal Failure (unspecified) [ ] Lower Tubular Nephrosis [ ] Other: [ ] Not Applicable Present on Admission: [ x] Yes (Y) [ ] Clinically undeterminable (W) [ ] No (N) Please also document response in your Progress Notes and/or Discharge Summary and indicate if the condition was present on admission. CAITLYN
[2018-01-29 17:26] VITALS: BP 151/79
== END 2018-01-29 19:25 | disposition home or self-care (01) ==
LOC: ED 21:17 → INTOOBSV 01-28 03:57 → 4A 01-28 03:57
PROVIDERS: ADMIT Internal Medicine; ATTEND Internal Medicine
DX: R07.89 Other chest pain (principal); K21.9 Gastro-esophageal reflux disease without esophagitis; N17.0 Acute kidney failure with tubular necrosis; I25.10 Atherosclerotic heart disease of native coronary artery without angina pectoris; E11.9 Type 2 diabetes mellitus without complications; I10 Essential (primary) hypertension; M19.90 Unspecified osteoarthritis, unspecified site; G40.909 Epilepsy, unspecified, not intractable, without status epilepticus; R94.31 Abnormal electrocardiogram [ECG] [EKG]; I27.20 Pulmonary hypertension, unspecified; Z95.5 Presence of coronary angioplasty implant and graft; Z79.899 Other long term (current) drug therapy; Z86.711 Personal history of pulmonary embolism
CPT/HCPCS: 36415; 71045; 78452; 80048; 82550; 82553; 82962; 84484; 85025; 93005; 93010; 93017; 94640; 99285; A9502; G0378; J1644; J2785; J7030

== ENCOUNTER 2019-07-22 18:38 | Emergency (ER) | payer MEDICARE ==
[2019-07-22 20:07] LABS: Basophils # (Auto) 0.1 K/mm3 (0.0-0.1); Basophils % (Auto) 1.1 % (0.0-1.8); Eosinophils # (Auto) 0.1 K/mm3 (0.0-0.4); Eosinophils % (Auto) 1.8 % (0.0-4.3); Hematocrit 41.7 % (30.3-42.9); Hemoglobin 13.6 gm/dl (10.1-14.3); Lymphocytes # (Auto) 2.2 K/mm3 (1.2-5.4); Lymphocytes % (Auto) 39.7 % (13.4-35.0); Mean Corpuscular HGB Conc 33 % (30-34); Mean Corpuscular Volume 89 fl (79-97); Monocytes # (Auto) 0.4 K/mm3 (0.0-0.8); Monocytes % (Auto) 7.5 % (0.0-7.3); Red Blood Count 4.68 M/mm3 (3.65-5.03); Red Cell Distribution Width 13.8 % (13.2-15.2)
[2019-07-22 20:17] LABS: Platelet Count 147 K/mm3 (140-440)
[2019-07-22 20:28] LABS: BUN/Creatinine Ratio 12; Blood Urea Nitrogen 11 mg/dL (7-17); Calcium 9.4 mg/dL (8.4-10.2); Hemolysis Index 9
[2019-07-22 20:49] LABS: Bacteria,Urine 2+ /HPF (Negative); Mucus,Urine FEW /HPF; WBC,Urine < 1.0 /HPF (0.0-6.0)
[2019-07-22 20:56] LABS: Color,Urine Straw (Yellow)
[2019-07-22 20:57] LABS: Bilirubin,Urine Negative (Negative); Blood,Urine Small (Negative); Protein,Urine <15 mg/dL mg/dL (Negative); Urobilinogen,Urine < 2.0 mg/dL (<2.0)
[2019-07-22 21:10] LABS: Amphetamine Screen,Urine PRESUMPTIVE NEGATIVE; Benzodiazepines Screen,Urine PRESUMPTIVE NEGATIVE; Cannabinoid Screen,Urine PRESUMPTIVE NEGATIVE; Cocaine Screen,Urine PRESUMPTIVE NEGATIVE; Methadone Screen,Urine PRESUMPTIVE NEGATIVE; Opiate Screen,Urine PRESUMPTIVE NEGATIVE
--- NOTE | 2019-07-22 23:31 | Emergency Department Report ---
ED Psych HPI - General Chief Complaint: Psych Stated Complaint: MH EVALUATION (THREATING) Time Seen by Provider: 07/22/19 20:30 Source: patient Mode of arrival: Ambulatory Limitations: No Limitations - History of Present Illness Initial Comments: 69-year-old female with a past medical history of multiple chronic medical conditions as "bipolar with suicidal tendencies" presents to the hospital complaining of suicidal ideation. Patient states she is at the dentist's office today and they told her that she did not have insurance. Patient states that this upset her and she got in an argument with the dental office. Stating she called [facility] stating she wanted to kill himself. As per triage when asked if she had a plan she status there are numerous ways to kill himself. She states she could take a handful of pills or shoot herself in the head. She then says that she does not really want to kill herself she was just upset. I ask gillian fonseca if she has access to a gun. She then states "I wish I did so I could end it all". No physical complaints reported. She is compliant with her medications and denies psychosis. - Related Data Home Medications Medication Instructions Recorded Confirmed Last Taken Albuterol Sulfate [Ventolin HFA] 1 puff IH BID 07/17/17 01/28/18 2 Days Ago ~01/26/18 Apixaban [Eliquis] 5 mg PO BID 07/17/17 01/28/18 2 Days Ago ~01/26/18 Aspirin [Adult Low Dose Aspirin EC] 81 mg PO DAILY 07/17/17 01/28/18 2 Days Ago ~01/26/18 Bimatoprost [Lumigan 0.01%] 1 drop OP HS 07/17/17 01/28/18 2 Days Ago ~01/26/18 Fluticasone Propionate [Flovent 1 puff IH DAILY 07/17/17 01/28/18 2 Days Ago 110 MCG/PUFF HFA] ~01/26/18 Fluticasone [Flonase] 2 spray NS BID 07/17/17 01/28/18 2 Days Ago ~01/26/18 Furosemide [Lasix] 20 mg PO PRN 07/17/17 01/28/18 2 Days Ago ~01/26/18 Omeprazole 40 mg PO QAM 07/17/17 01/28/18 2 Days Ago ~01/26/18 Rosuvastatin Calcium [Crestor] 10 mg PO HS 07/17/17 01/28/18 2 Days Ago ~01/26/18 Solifenacin Succinate [Vesicare] 10 mg PO DAILY 07/17/17 01/28/18 2 Days Ago ~01/26/18 Trazodone HCl 150 mg PO DAILY 07/17/17 01/28/18 2 Days Ago ~01/26/18 Venlafaxine HCl [Effexor Xr] 150 mg PO DAILY 07/17/17 01/28/18 2 Days Ago ~01/26/18 risperiDONE [RisperDAL] 3 mg PO QPM 07/17/17 01/28/18 2 Days Ago ~01/26/18 Docusate Sodium 100 mg PO BID MDD stool softener 01/28/18 01/28/18 Unknown Allergies Allergy/AdvReac Type Severity Reaction Status Date / Time Latex, Natural Rubber Allergy Rash Verified 08/04/17 13:33 lidocaine [From Xylocaine] Allergy Swelling Verified 08/04/17 13:33 Penicillins Allergy Swelling Verified 08/04/17 13:33 SEAFOOD Allergy Intermediate Rash Uncoded 07/17/17 11:27 ED Review of Systems ROS: Stated complaint: MH EVALUATION (THREATING) Other details as noted in HPI Comment: All other systems reviewed and negative ED Past Medical Hx - Past Medical History Previous Medical History?: Yes Hx Hypertension: Yes Hx Heart Attack/AMI: No Hx Congestive Heart Failure: No Hx Diabetes: Yes Hx GERD: Yes Hx Liver Disease: No Hx Arthritis: Yes Hx Seizures: Yes Hx Psychiatric Treatment: Yes (bipolar) Hx Asthma: Yes Hx COPD: No Hx Dementia: No Additional medical history: Pulmonary Embolism May 2017. HYPOTENSION. RUPTURED DISC IN BACK. OVERACTIVE BLADDER - Surgical History Past Surgical History?: Yes Hx Coronary Stent: Yes Hx Pacemaker: No Hx Internal Defibrillator: No Additional Surgical History: BONE SPURS BOTH FEET. "INTERNAL MONITOR" - Social History Smoking Status: Former Smoker Substance Use Type: None - Medications Home Medications: Home Medications Medication Instructions Recorded Confirmed Last Taken Type Albuterol Sulfate [Ventolin HFA] 1 puff IH BID 07/17/17 01/28/18 2 Days Ago History ~01/26/18 Apixaban [Eliquis] 5 mg PO BID 07/17/17 01/28/18 2 Days Ago History ~01/26/18 Aspirin [Adult Low Dose Aspirin EC] 81 mg PO DAILY 07/17/17 01/28/18 2 Days Ago History ~01/26/18 Bimatoprost [Lumigan 0.01%] 1 drop OP HS 07/17/17 01/28/18 2 Days Ago History ~01/26/18 Fluticasone Propionate [Flovent 1 puff IH DAILY 07/17/17 01/28/18 2 Days Ago History 110 MCG/PUFF HFA] ~01/26/18 Fluticasone [Flonase] 2 spray NS BID 07/17/17 01/28/18 2 Days Ago History ~01/26/18 Furosemide [Lasix] 20 mg PO PRN 07/17/17 01/28/18 2 Days Ago History ~01/26/18 Omeprazole 40 mg PO QAM 07/17/17 01/28/18 2 Days Ago History ~01/26/18 Rosuvastatin Calcium [Crestor] 10 mg PO HS 07/17/17 01/28/18 2 Days Ago History ~01/26/18 Solifenacin Succinate [Vesicare] 10 mg PO DAILY 07/17/17 01/28/18 2 Days Ago History ~01/26/18 Trazodone HCl 150 mg PO DAILY 07/17/17 01/28/18 2 Days Ago History ~01/26/18 Venlafaxine HCl [Effexor Xr] 150 mg PO DAILY 07/17/17 01/28/18 2 Days Ago History ~01/26/18 risperiDONE [RisperDAL] 3 mg PO QPM 07/17/17 01/28/18 2 Days Ago History ~01/26/18 Docusate Sodium 100 mg PO BID MDD stool softener 01/28/18 01/28/18 Unknown History ED Physical Exam - General Limitations: No Limitations - Other Other exam information: General: No acute distress Head: Atraumatic Eyes: normal appearance ENT: Moist mucous membranes Neck: Normal appearance, no midline tenderness Chest: Clear to auscultation bilaterally CV: Regular rate and rhythm Abdomen: Soft, normal bowel sounds, nontender, nondistended, no rebound or guarding Back: Normal inspection Extremity: Normal inspection infection, full range of motion Neuro: Alert O x 3, no facial asymmetry, speech clear, no gross motor sensory deficit Psych: Appropriate behavior Skin: No rash ED Course Vital Signs 07/22/19 19:16 Temperature 98.6 F Pulse Rate 80 Blood Pressure 153/86 O2 Sat by Pulse 91 Oximetry ED Medical Decision Making - Lab Data Result diagrams: 07/22/19 19:49 07/22/19 19:49 Lab Results 07/22/19 07/22/19 07/22/19 Range/Units 19:49 19:49 19:49 WBC (4.5-11.0) K/mm3 RBC (3.65-5.03) M/mm3 Hgb (10.1-14.3) gm/dl Hct (30.3-42.9) % MCV (79-97) fl MCH (28-32) pg MCHC (30-34) % RDW (13.2-15.2) % Plt Count (140-440) K/mm3 Lymph % (Auto) (13.4-35.0) % [place] % (Auto) (0.0-7.3) % Eos % (Auto) (0.0-4.3) % Baso % (Auto) (0.0-1.8) % Lymph # (1.2-5.4) K/mm3 [place] # (0.0-0.8) K/mm3 Eos # (0.0-0.4) K/mm3 Baso # (0.0-0.1) K/mm3 Seg Neutrophils % (40.0-70.0) % Seg Neutrophils # (1.8-7.7) K/mm3 Sodium 141 (137-145) mmol/L Potassium 3.2 L (3.6-5.0) mmol/L Chloride 104.5 (98-107) mmol/L Carbon Dioxide 23 (22-30) mmol/L Anion Gap 17 mmol/L BUN 11 (7-17) mg/dL Creatinine 0.9 (0.7-1.2) mg/dL Estimated GFR > 60 ml/min BUN/Creatinine Ratio 12 % Glucose 103 H (65-100) mg/dL Calcium 9.4 (8.4-10.2) mg/dL Urine Color (Yellow) Urine Turbidity (Clear) Urine pH (5.0-7.0) Ur Specific [place] (1.003-1.030) Urine Protein (Negative) mg/dL Urine Glucose (UA) (Negative) mg/dL Urine Ketones (Negative) mg/dL Urine Blood (Negative) Urine Nitrite (Negative) Ur Reducing Substances Urine Bilirubin (Negative) Urine Ictotest Urine Urobilinogen (<2.0) mg/dL Ur Leukocyte Esterase (Negative) Urine WBC (Auto) (0.0-6.0) /HPF Urine RBC (Auto) (0.0-6.0) /HPF U Epithel Cells (Auto) (0-13.0) /HPF Urine Bacteria (Auto) (Negative) /HPF Urine Mucus /HPF Salicylates < 0.3 L (2.8-20.0) mg/dL Urine Opiates Screen Urine Methadone Screen Acetaminophen < 5.0 L (10.0-30.0) ug/mL Ur Barbiturates Screen Ur Phencyclidine Scrn Ur Amphetamines Screen U Benzodiazepines Scrn Urine Cocaine Screen U Marijuana (THC) Screen Drugs of Abuse Note Plasma/Serum Alcohol (0-0.07) % 07/22/19 07/22/19 07/22/19 Range/Units 19:49 19:49 20:03 WBC 5.6 (4.5-11.0) K/mm3 RBC 4.68 (3.65-5.03) M/mm3 Hgb 13.6 (10.1-14.3) gm/dl Hct 41.7 (30.3-42.9) % MCV 89 (79-97) fl MCH 29 (28-32) pg MCHC 33 (30-34) % RDW 13.8 (13.2-15.2) % Plt Count 147 (140-440) K/mm3 Lymph % (Auto) 39.7 H (13.4-35.0) % [place] % (Auto) 7.5 H (0.0-7.3) % Eos % (Auto) 1.8 (0.0-4.3) % Baso % (Auto) 1.1 (0.0-1.8) % Lymph # 2.2 (1.2-5.4) K/mm3 [place] # 0.4 (0.0-0.8) K/mm3 Eos # 0.1 (0.0-0.4) K/mm3 Baso # 0.1 (0.0-0.1) K/mm3 Seg Neutrophils % 49.9 (40.0-70.0) % Seg Neutrophils # 2.8 (1.8-7.7) K/mm3 Sodium (137-145) mmol/L Potassium (3.6-5.0) mmol/L Chloride (98-107) mmol/L Carbon Dioxide (22-30) mmol/L Anion Gap mmol/L BUN (7-17) mg/dL Creatinine (0.7-1.2) mg/dL Estimated GFR ml/min BUN/Creatinine Ratio % Glucose (65-100) mg/dL Calcium (8.4-10.2) mg/dL Urine Color Straw (Yellow) Urine Turbidity Clear (Clear) Urine pH 7.0 (5.0-7.0) Ur Specific [place] 1.004 (1.003-1.030) Urine Protein <15 mg/dl (Negative) mg/dL Urine Glucose (UA) Negative (Negative) mg/dL Urine Ketones Negative (Negative) mg/dL Urine Blood Small A (Negative) Urine Nitrite Negative (Negative) Ur Reducing Substances Not Reportable Urine Bilirubin Negative (Negative) Urine Ictotest Not Reportable Urine Urobilinogen < 2.0 (<2.0) mg/dL Ur Leukocyte Esterase Negative (Negative) Urine WBC (Auto) < 1.0 (0.0-6.0) /HPF Urine RBC (Auto) 1.0 (0.0-6.0) /HPF U Epithel Cells (Auto) 1.0 (0-13.0) /HPF Urine Bacteria (Auto) 2+ (Negative) /HPF Urine Mucus Few /HPF Salicylates (2.8-20.0) mg/dL Urine Opiates Screen Urine Methadone Screen Acetaminophen (10.0-30.0) ug/mL Ur Barbiturates Screen Ur Phencyclidine Scrn Ur Amphetamines Screen U Benzodiazepines Scrn Urine Cocaine Screen U Marijuana (THC) Screen Drugs of Abuse Note Plasma/Serum Alcohol < 0.01 (0-0.07) % 07/22/19 Range/Units 20:03 WBC (4.5-11.0) K/mm3 RBC (3.65-5.03) M/mm3 Hgb (10.1-14.3) gm/dl Hct (30.3-42.9) % MCV (79-97) fl MCH (28-32) pg MCHC (30-34) % RDW (13.2-15.2) % Plt Count (140-440) K/mm3 Lymph % (Auto) (13.4-35.0) % [place] % (Auto) (0.0-7.3) % Eos % (Auto) (0.0-4.3) % Baso % (Auto) (0.0-1.8) % Lymph # (1.2-5.4) K/mm3 [place] # (0.0-0.8) K/mm3 Eos # (0.0-0.4) K/mm3 Baso # (0.0-0.1) K/mm3 Seg Neutrophils % (40.0-70.0) % Seg Neutrophils # (1.8-7.7) K/mm3 Sodium (137-145) mmol/L Potassium (3.6-5.0) mmol/L Chloride (98-107) mmol/L Carbon Dioxide (22-30) mmol/L Anion Gap mmol/L BUN (7-17) mg/dL Creatinine (0.7-1.2) mg/dL Estimated GFR ml/min BUN/Creatinine Ratio % Glucose (65-100) mg/dL Calcium (8.4-10.2) mg/dL Urine Color (Yellow) Urine Turbidity (Clear) Urine pH (5.0-7.0) Ur Specific [place] (1.003-1.030) Urine Protein (Negative) mg/dL Urine Glucose (UA) (Negative) mg/dL Urine Ketones (Negative) mg/dL Urine Blood (Negative) Urine Nitrite (Negative) Ur Reducing Substances Urine Bilirubin (Negative) Urine Ictotest Urine Urobilinogen (<2.0) mg/dL Ur Leukocyte Esterase (Negative) Urine WBC (Auto) (0.0-6.0) /HPF Urine RBC (Auto) (0.0-6.0) /HPF U Epithel Cells (Auto) (0-13.0) /HPF Urine Bacteria (Auto) (Negative) /HPF Urine Mucus /HPF Salicylates (2.8-20.0) mg/dL Urine Opiates Screen Presumptive negative Urine Methadone Screen Presumptive negative Acetaminophen (10.0-30.0) ug/mL Ur Barbiturates Screen Presumptive negative Ur Phencyclidine Scrn Presumptive negative Ur Amphetamines Screen Presumptive negative U Benzodiazepines Scrn Presumptive negative Urine Cocaine Screen Presumptive negative U Marijuana (THC) Screen Presumptive negative Drugs of Abuse Note Disclamer Plasma/Serum Alcohol (0-0.07) % - Medical Decision Making Patient is medically clear for psychiatric admission for suicidal ideation. Awaiting mental health evaluation for appropriate placement and treatment. By mouth potassium ordered for mild hypokalemia. - Differential Diagnosis suicidal, homicidal, psychosis Critical Care Time: No Critical care attestation.: If time is entered above; I have spent that time in minutes in the direct care of this critically ill patient, excluding procedure time. ED Disposition Clinical Impression: Suicidal ideation, History of bipolar disorder, Hypokalemia, Medical clearance for psychiatric admission Disposition: DC/TX-65 PSY HOSP/PSY UNIT Is pt being admited?: No Condition: Stable Time of Disposition: 23:36
[2019-07-22] MEDS ORDERED: POTASSIUM CHLORIDE ER 20 MEQ TAB PO ONE (23:34)
--- NOTE | 2019-07-23 14:02 | Consultation ---
History of Present Illness - Reason for Consult Consult date: 07/23/19 Reason for consult: Psychiatric Consult Requesting physician: DELILAH FELICIANO - Chief Complaint Chief complaint: " I can't shake this feeling" - History of Present Psychiatric Illness Patient is a 69 y/o female that presents to ER with complaints of suicidal thoughts. Patient reports long history of suicidal thoughts and a history of greater than 50 suicide attempts. She reports going to the dentist and she was triggered by some frustrating information and she states that when things don't go right for her that seems to be a trigger for her, but for some reason this recent bout of so called transgressions against her has been very long and she can't get from under it and she want to kill her self daily and it feels stronger than most times. She won't disclose a plan. She denies any homicidal ideation. She denies any reacreational substance or drug use .Denies any auditory or visual hallucinations. Medications and Allergies Allergies Allergy/AdvReac Type Severity Reaction Status Date / Time Latex, Natural Rubber Allergy Rash Verified 08/04/17 13:33 lidocaine [From Xylocaine] Allergy Swelling Verified 08/04/17 13:33 Penicillins Allergy Swelling Verified 08/04/17 13:33 SEAFOOD Allergy Intermediate Rash Uncoded 07/17/17 11:27 Home Medications Medication Instructions Recorded Confirmed Last Taken Type Albuterol Sulfate [Ventolin HFA] 1 puff IH BID 07/17/17 07/23/19 2 Days Ago History ~01/26/18 Apixaban [Eliquis] 5 mg PO BID 07/17/17 07/23/19 2 Days Ago History ~01/26/18 Aspirin [Adult Low Dose Aspirin EC] 81 mg PO DAILY 07/17/17 07/23/19 2 Days Ago History ~01/26/18 Bimatoprost [Lumigan 0.01%] 1 drop OP HS 07/17/17 07/23/19 2 Days Ago History ~01/26/18 Fluticasone Propionate [Flovent 1 puff IH DAILY 07/17/17 07/23/19 2 Days Ago History 110 MCG/PUFF HFA] ~01/26/18 Fluticasone [Flonase] 2 spray NS BID 07/17/17 07/23/19 2 Days Ago History ~01/26/18 Furosemide [Lasix] 20 mg PO PRN 07/17/17 07/23/19 2 Days Ago History ~01/26/18 Omeprazole 40 mg PO QAM 07/17/17 07/23/19 2 Days Ago History ~01/26/18 Rosuvastatin Calcium [Crestor] 10 mg PO HS 07/17/17 07/23/19 2 Days Ago History ~01/26/18 Solifenacin Succinate [Vesicare] 10 mg PO DAILY 07/17/17 07/23/19 2 Days Ago History ~01/26/18 Trazodone HCl 150 mg PO DAILY 07/17/17 07/23/19 2 Days Ago History ~01/26/18 Venlafaxine HCl [Effexor Xr] 150 mg PO DAILY 07/17/17 07/23/19 2 Days Ago History ~01/26/18 risperiDONE [RisperDAL] 3 mg PO QAM&QHS 07/17/17 07/23/19 2 Days Ago History ~01/26/18 Docusate Sodium 100 mg PO BID MDD stool softener 01/28/18 07/23/19 Unknown History Past psychiatric history - past Psychiatric treatment and history Psych: Anxiety, Depression, Panic, Psychosis Mental Status Exam - Vital signs Last Vital Signs Temp 98.7 F 07/23/19 07:00 Pulse 64 07/23/19 07:00 Resp 16 07/23/19 07:00 BP 166/77 07/23/19 07:00 Pulse Ox 97 07/23/19 07:00 - Exam Orientation: time, person Affect: depressed, anxious Mood: sad, anxious Thought content: paranoia Thought Process: Circumstantial, Tangential Speech: slow Concentration: distractible Level of consciousness: alert Memory: Intact Interaction: cooperative Results Result Diagrams: 07/22/19 19:49 07/22/19 19:49 Abnormal lab results 07/22/19 07/22/19 07/22/19 Range/Units 19:49 19:49 19:49 Lymph % (Auto) (13.4-35.0) % [place] % (Auto) (0.0-7.3) % Potassium 3.2 L (3.6-5.0) mmol/L Glucose 103 H (65-100) mg/dL Urine Blood (Negative) Salicylates < 0.3 L (2.8-20.0) mg/dL Acetaminophen < 5.0 L (10.0-30.0) ug/mL 07/22/19 07/22/19 Range/Units 19:49 20:03 Lymph % (Auto) 39.7 H (13.4-35.0) % [place] % (Auto) 7.5 H (0.0-7.3) % Potassium (3.6-5.0) mmol/L Glucose (65-100) mg/dL Urine Blood Small A (Negative) Salicylates (2.8-20.0) mg/dL Acetaminophen (10.0-30.0) ug/mL All other labs normal. Assessment and Plan Assessment and plan: Impression Depression, Suicidal Ideation, Anxiety Patient is suicidal We should place on inpatient status Place on Suicide Precautions Continue her Risperdal 3 mg PO BID and Trazadone Q hs We will staff with Dr. Javan MD - Psychiatric problem (1) Depression Current Visit: Yes Status: Acute Qualifiers: Depression Type: major depressive disorder Active/Remission status: currently active
[2019-07-23] MEDS ORDERED: PANTOPRAZOLE 40 MG TAB PO ONE (14:42)
[2019-07-23] MEDS ORDERED: risperiDONE 1 MG TAB PO ONE (14:42)
[2019-07-23] MEDS ORDERED: DOCUSATE SODIUM 100 MG CAP PO ONE (14:42)
[2019-07-23] MEDS ORDERED: APIXABAN 5 MG TAB PO ONE (15:00)
[2019-07-23] MEDS ORDERED: LATANOPROST 0.005% OPHTH SOLN 2.5 ML OU SCH (18:00)
[2019-07-24 07:41] VITALS: BP 138/87
== END 2019-07-24 10:17 ==
LOC: EEVIPCON 18:38 → ED 18:38
DX: F31.9 Bipolar disorder, unspecified (principal); E87.6 Hypokalemia; R45.851 Suicidal ideations; I10 Essential (primary) hypertension; E11.9 Type 2 diabetes mellitus without complications; K21.9 Gastro-esophageal reflux disease without esophagitis; M19.90 Unspecified osteoarthritis, unspecified site; J45.909 Unspecified asthma, uncomplicated; Z87.891 Personal history of nicotine dependence
CPT/HCPCS: 36415; 80048; 80307; 80320; 81001; 85025; G0480